=== PATIENT | female | born 1985 | race Caucasian/White ===

== ENCOUNTER 2017-05-09 09:08 | Day surgery (SDC) | payer OTHER ==
[2017-05-09] VITALS (16 sets, daily range): BP systolic 90–109; BP diastolic 54–68; PULSE 58–88; RESP 12–27
[~2017-05-09 09:08] MED LIST: CEFAZOLIN 2 GM/50 ML (PMX) 50 ML IVPB SCH; LACTATED RINGER'S 1,000 ML IV* SCH
[2017-05-09] MEDS ORDERED: ALPR1TAB2 PO (09:47)
[2017-05-09] MEDS ORDERED: FENTAnyl 50 MCG/ML VIAL IV PRN (10:30)
[2017-05-09] MEDS ORDERED: MEPERIDINE 25 MG INJ IV PRN (10:30)
[2017-05-09] MEDS ORDERED: HYDROmorphONE (0.2 MG/ML) 10ML SYG IV PRN ×2 (10:30)
[2017-05-09] MEDS ORDERED: ONDANSETRON 4 MG INJ IV PRN ×2 (10:30→14:00)
[2017-05-09] MEDS ORDERED: DIPHENHYDRAMINE 50 MG INJ IV PRN (10:30)
[2017-05-09] MEDS ORDERED: PROCHLORPERAZINE 10 MG INJ IV PRN (10:30)
[2017-05-09] MEDS ORDERED: OXYCODONE/ACETAMINOPHEN (5/325) TAB PO PRN ×2 (10:30)
[2017-05-09 10:59] LABS: BASOPHILS % 0.2 % (0.0-2.0); EOSINOPHILS # 0.1 10^3/ul (0.0-0.5); HEMATOCRIT 36.5 % (37.0-47.0); HEMOGLOBIN 12.5 g/dl (12.0-16.0); LYMPHOCYTES # 2.2 10^3/ul (0.8-2.9); LYMPHOCYTES % 37.5 % (15.0-51.0); MEAN CORPUSCULAR HEMOGLOBIN 30.9 pg (29.0-33.0); MEAN CORPUSCULAR HGB CONC 34.2 g/dl (32.0-37.0); MEAN CORPUSCULAR VOLUME 90.3 fl (82.0-101.0); MEAN PLATELET VOLUME 10.4 fl (7.4-10.4); MONOCYTE # 0.6 10^3/ul (0.3-0.9); MONOCYTES % 10.2 % (0.0-11.0); NEUTROPHILS % 50.9 % (39.0-77.0); PLATELET COUNT 152 10^3/UL (140-415); RED BLOOD COUNT 4.04 10^6/ul (4.20-5.40); RED CELL DISTRIBUTION WIDTH 12.1 % (11.5-14.5); WHITE BLOOD COUNT 5.8 10^3/ul (4.8-10.8)
[2017-05-09] MEDS ORDERED: FENTAnyl 50 MCG/ML VIAL ONE (11:17)
[2017-05-09] MEDS ORDERED: SUCCINYLCHOLINE CHLORIDE 100 MG/5 ML SYG IV ONE (11:17)
[2017-05-09] MEDS ORDERED: PROPOFOL 20 ML ONE (11:17)
[2017-05-09] MEDS ORDERED: MIDAZOLAM 1 MG/ML 2 ML INJ ONE (11:17)
[2017-05-09] MEDS ORDERED: ROCURONIUM 50 MG INJ ONE (11:17)
[2017-05-09] MEDS ORDERED: LIDOCAINE 2% (SDV) 5 ML INJ ONE (11:17)
[2017-05-09] MEDS ORDERED: BUPIVACAINE 0.5%/EPI (SDV) 10 ML INJ ONE (12:07)
[2017-05-09] MEDS ORDERED: CEFAZOLIN 1 GM INJ ONE (12:24)
[2017-05-09] MEDS ORDERED: ONDANSETRON 4 MG INJ ONE (12:28)
[2017-05-09] MEDS ORDERED: DEXAMETHASONE 4 MG/ML 1 ML INJ ONE (12:28)
[2017-05-09] MEDS ORDERED: METOCLOPRAMIDE 10 MG INJ ONE (12:28)
[2017-05-09] MEDS ORDERED: SUGAMMADEX SODIUM 200 MG/2 ML VIAL IV ONE (13:12)
[2017-05-09] MEDS ORDERED: EPHEDrine SULFATE 50 MG/5 ML SYG ONE (13:12)
[2017-05-09] MEDS ORDERED: KETOROLAC 30 MG INJ ONE (13:12)
--- NOTE | 2017-05-09 13:34 | SIPON ---
Date/Time of Note Date/Time of Note DATE: 05/09/17 TIME: 13:32 Operative Report Preoperative Diagnosis Voluntary sterilization Postoperative Diagnosis Same Operation/Procedure Performed Minilaparotomy BTL Surgeon: ELY HERNANDEZ MD Anesthesia Type: general Estimated Blood Loss: minimal Transfusion Required: no Specimens right and left Fallopian tubes Grafts/Implants: none Complications: no ELY HERNANDEZ MD May 09, 2017 13:34
[2017-05-09] MEDS ORDERED: HYDROCODONE/APAP (5/325) TAB PO PRN (14:00)
[2017-05-09] MEDS ORDERED: KETOROLAC 30 MG INJ IV PRN (14:00)
[2017-05-09] MEDS ORDERED: morphine 2 MG INJ IV PRN (14:00)
--- NOTE | 2017-05-10 00:02 | PREOPHP ---
DATE OF ADMISSION: 05/09/2017 HISTORY OF PRESENT ILLNESS: The patient is a 32-year-old female, 5 para 4, AB1, last menstrual period a week prior to admission, is admitted for voluntary sterilization. PAST MEDICAL HISTORY: Anxiety. PAST SURGICAL HISTORY: Vaginal reconstruction. FAMILY HISTORY: Diabetes. ALLERGIES: NO KNOWN ALLERGIES. PHYSICAL EXAMINATION: VITAL SIGNS: The patient is afebrile. Vital signs stable. HEENT: Examination of head with normal limits. NECK: Examination within normal limits. CHEST: Examination within normal limits. ABDOMEN: Soft, nontender and nondistended. PELVIC: Pelvic exam normal. EXTREMITIES: Examination within normal limits. NEUROLOGIC: Examination within normal limits. IMPRESSION: Voluntary sterilization. PLAN: Mini-laparotomy and bilateral tubal ligation. The risks, benefits and alternatives of the procedure were explained to the patient. The patient has been counseled about all of her contraceptive options including all methods of sterilization. It was explained to the patient that with bilateral tubal ligation there is a chance of failure resulting in ectopic and/or intrauterine . After counseling the patient said she understood and gave informed consent for the procedure. Dictated By: Luis Weeks MD /dorota/dhruv /Document#: [id number]
--- NOTE | 2017-05-10 08:12 | OPR ---
DATE OF OPERATION: 05/09/2017 PREOPERATIVE DIAGNOSIS: Voluntary sterilization. POSTOPERATIVE DIAGNOSIS: Voluntary sterilization. OPERATION PERFORMED: Mini-laparotomy, bilateral tubal ligation. 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 ANESTHESIA: General. ANESTHESIOLOGIST: . OPERATIVE PROCEDURE: Patient was taken to the operating room and placed on the operating table in the supine position. After adequate general anesthesia was given, the area was prepared and draped in the usual sterile fashion. Using a scalpel, a Pfannenstiel incision was made about 2 fingerbreadths above the symphysis pubis. The incision was carried to the fascia. The fascia was incised and extended bilaterally with Dozier scissors. Two Kochers were used to separate the fascia from the muscle. The muscle was dissected in the midline down to the peritoneum. The peritoneum was secured with Kellys and incised with Metzenbaum scissors. The right fallopian tube was grasped with a [place] clamp. The right fallopian tube was followed to its fimbriated end . Using 0 chromic suture, a 5-cm segment of the right fallopian tube was doubly ligated. Using Metzenbaum scissors, a portion of the right fallopian tube above the ligated area was excised and sent to pathology. The same procedure was repeated on the left fallopian tube. After assuring hemostasis, the peritoneum was closed with 0 chromic. The fascia was closed with 0 Vicryl continuous. Subcutaneous tissue was reapproximated with 0 chromic. The skin was closed with josé luis. Estimated blood loss minimal. All counts were correct. Dictated By: Luis Weeks MD /dorota/taylor /Document#: [id number]
== END 2017-05-09 17:04 | disposition home or self-care (01) ==
LOC: SDS 09:08
PROVIDERS: ATTEND Obstetrics & Gynecology
DX: Z30.2 Encounter for sterilization (principal); E66.9 Obesity, unspecified
CPT/HCPCS: 58600; 84703; 85025; 86850; 86900; 86901; 88302; J0690; J1100; J1885; J2175; J2250; J2270; J2405; J2765; J3010; Z7512; Z7610; J7999